=== PATIENT | male | born 2000 | race African-American/Black ===

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

== ENCOUNTER 2022-06-03 15:46 | Emergency (ER) | payer OTHER ==
--- OUTSIDE RECORDS SUMMARY | 2022-06-03 15:52 | XMS REPORT | Continuity of Care Document ---
:[address] [facility] t Address [address] [place] [address] Care Team Providers Name Role Phone JUAN DANIELS Attending Clinician Unavailable ANTONI GONZALEZ Attending Clinician Unavailable Juan Daniels MD Attending Clinician Doctor Unassigned, [place] Attending Clinician Unavailable 2, [facility] Attending Clinician Unavailable Payers Payer Name Policy Type Policy Number Effective Date Expiration Date Collin LIVES [id number] 2020 HEALTH 00:00:00 Problems This patient has no known problems. Allergies, Adverse Reactions, Alerts Allergy Allergy Status Severity Reaction(s) Onset Inactive Treating Comm ents Source Name Type Date Date Clinician NO KNOWN Drug Active Univers ALLERGIE Class ity of [facility] Social History Social Habit Start Date Stop Date Quantity Comments Source History [facility] University o f Alcohol Std [place] [facility] Drinks Branch History [facility] University o f Alcohol Binge [place] [facility] Sex Assigned At [facility]it y of [facility] Exposure to Not sure University of SARS-CoV-2 [facility] (event) Branch Tobacco use and 2020-04-03 2020-04-03 Never used Universit y of exposure 00:00:00 00:00:00 [facility] Branch Alcohol intake 2020-04-03 2020-04-03 Lifetime University of 00:00:00 00:00:00 non-drinker [place] [facility] (finding) Branch History SDOH 2020-04-03 2020-04-03 1 University o f Alcohol Frequency 00:00:00 00:00:00 [facility] edical Branch Smoking Status Start Date Stop Date Source Never smoker [facility] Medications Ordered Filled Start Stop Current Ordering Indication Dosage Frequency Signature Comments Components Source Medication Medication Date Date Medication? Clinician (SIG) Name Name semaglutide Yes [id number] .5mg inject 0.5 Univers (OZEMPIC) 1-04 mg under ity of 0.25 mg or 00:00: the skin Mil as 0.5 mg(2 00 weekly. Medical mg/1.5 mL) Branch PnIj metFORMIN Yes [id number] 1000mg Take 2 Univers 500 mg 24 1-04 tablets by ity of hr tablet 00:00: mouth 2 (two) Medical times Branch daily with meals. semaglutide Yes [id number] .5mg inject 0.5 Univers (OZEMPIC) 1-04 mg under ity of 0.25 mg or 00:00: the skin Mil as 0.5 mg(2 00 weekly. Medical mg/1.5 mL) Branch PnIj metFORMIN Yes [id number] 1000mg Take 2 Univers 500 mg 24 1-04 tablets by ity of hr tablet 00:00: mouth (two) Medical times Branch daily with meals. semaglutide Yes [id number] .5mg inject 0.5 Univers (OZEMPIC) 1-04 mg under ity of 0.25 mg or 00:00: the skin Mil as 0.5 mg(2 00 weekly. Medical mg/1.5 mL) Branch PnIj metFORMIN 0 Yes [id number] 1000mg Take 2 Univers 500 mg 24 1-04 tablets by ity of hr tablet 00:00: mouth 2 (two) Medical times Branch daily with meals. semaglutide 0 Yes [id number] .5mg inject 0.5 Univers (OZEMPIC) 1-04 mg under ity of 0.25 mg or 00:00: the skin Mil as 0.5 mg(2 00 weekly. Medical mg/1.5 mL) Branch PnIj metFORMIN 0 Yes [id number] 1000mg Take 2 Univers 500 mg 24 1-04 tablets by ity of hr tablet 00:00: mouth 2 00 (two) Medical times Branch daily with meals. semaglutide 2020- Yes [id number] .5mg inject 0.5 Univers (OZEMPIC) 1-04 mg under ity of 0.25 mg or 00:00: the skin Mil as 0.5 mg(2 00 weekly. Medical mg/1.5 mL) Branch PnIj metFORMIN 0 Yes [id number] 1000mg Take 2 Univers 500 mg 24 1-04 tablets by ity of hr tablet 00:00: mouth 2 (two) Medical times Branch daily with meals. semaglutide 0 Yes [id number] .5mg inject 0.5 Univers (OZEMPIC) 1-04 mg under ity of 0.25 mg or 00:00: the skin Mil as 0.5 mg(2 00 weekly. Medical mg/1.5 mL) Branch PnIj metFORMIN 0 Yes [id number] 1000mg Take 2 Univers 500 mg 24 1-04 tablets by ity of hr tablet 00:00: mouth (two) Medical times Branch daily with meals. semaglutide Yes [id number] .5mg inject 0.5 Univers (OZEMPIC) 1-04 mg under ity of 0.25 mg or 00:00: the skin Mil as 0.5 mg(2 00 weekly. Medical mg/1.5 mL) Branch PnIj metFORMIN 0 Yes [id number] 1000mg Take 2 Univers 500 mg 24 1-04 tablets by ity of hr tablet 00:00: mouth 2 (two) Medical times Branch daily with meals. semaglutide Yes [id number] .5mg inject 0.5 Univers (OZEMPIC) 1-04 mg under ity of 0.25 mg or 00:00: the skin Mil as 0.5 mg(2 00 weekly. Medical mg/1.5 mL) Branch PnIj metFORMIN Yes [id number] 1000mg Take 2 Univers 500 mg 24 1-04 tablets by ity of hr tablet 00:00: mouth (two) Medical times Branch daily with meals. TRADJENTA 5 2019-03- No 1{tbl} Take 1 U nivers mg tablet 04-03 tablet by ity of 00:00: 00:00 mouth [place] 00 :00 daily. Medical Branch TRADJENTA 5 2019-03- No 1{tbl} Take 1 U nivers mg tablet - tablet by ity of 00:00: 00:00 mouth [place] 00 :00 daily. Medical Branch cetirizine 2020- Yes 10mg Take 10 mg U nivers 10 mg 2-12 by mouth ity of tablet 00:00: daily. [place] [facility] montelukast 2019- Yes TAKE 1 Univ ers 10 mg 2-12 TABLET BY ity of tablet 00:00: MOUTH [place] EVERY DAY Medical AT NIGHT Branch cetirizine 2019- Yes 10mg Take 10 mg U nivers 10 mg 2-12 by mouth ity of tablet 00:00: daily. [place] [facility] montelukast 2019- Yes TAKE 1 Univ ers 10 mg 2-12 TABLET BY ity of tablet 00:00: MOUTH [place] EVERY DAY Medical AT NIGHT Branch cetirizine 2019- Yes 10mg Take 10 mg U nivers 10 mg 2-12 by mouth ity of tablet 00:00: daily. [place] [facility] montelukast 2019- Yes TAKE 1 Univ ers 10 mg 2-12 TABLET BY ity of tablet 00:00: MOUTH [place] EVERY DAY Medical AT NIGHT Branch cetirizine 2019- Yes 10mg Take 10 mg U nivers 10 mg 2-12 by mouth ity of tablet 00:00: daily. [place] [facility] montelukast 2019- Yes TAKE 1 Univ ers 10 mg 2-12 TABLET BY ity of tablet 00:00: MOUTH [place] [address] EVERY DAY Medical AT NIGHT Branch cetirizine 2019- Yes 10mg Take 10 mg U nivers 10 mg 2-12 by mouth ity of tablet 00:00: daily. [place] [facility] montelukast 2019- Yes TAKE 1 Univ ers 10 mg 2-12 TABLET BY ity of tablet 00:00: MOUTH [place] EVERY DAY Medical AT NIGHT Branch cetirizine 2019- Yes 10mg Take 10 mg U nivers 10 mg 2-12 by mouth ity of tablet 00:00: daily. [place] [facility] montelukast 2019- Yes TAKE 1 Univ ers 10 mg 2-12 TABLET BY ity of tablet 00:00: MOUTH [place] [address] EVERY DAY Medical AT NIGHT Branch cetirizine 2019- Yes 10mg Take 10 mg U nivers 10 mg 2-12 by mouth ity of tablet 00:00: daily. [place] [facility] montelukast 2019- Yes TAKE 1 Univ ers 10 mg 2-12 TABLET BY ity of tablet 00:00: MOUTH [place] 00 EVERY DAY Medical AT NIGHT Branch cetirizine 2019-03 Yes 10mg Take 10 mg U nivers 10 mg 2-12 by mouth ity of tablet 00:00: daily. Medical Branch montelukast 2019-03 Yes TAKE 1 Univ ers 10 mg 2-12 TABLET BY ity of tablet 00:00: MOUTH 00 EVERY DAY Medical AT NIGHT Branch metFORMIN 2019-03- No 1000mg Take 1,000 Univers 1,000 mg 24 2- 01-04 mg by ity of hr tablet 00:00: 00:00 [place] (two) Medical times Branch daily. metFORMIN 2019-03- No 1000mg Take 1,000 Univers 1,000 mg 24 2- 01-04 mg by ity of hr tablet 00:00: 00:00 [place] 00 :[place] (two) Medical times Branch daily. metFORMIN 2019-03- No TAKE 1 Unive rs 500 mg 04-22 TABLET BY ity of tablet 00:00: 00:00 MOUTH [place] 00 :00 EVERY Medical EVENING Branch WITH DINNER metFORMIN 2019-03- No TAKE 1 Unive rs 500 mg 04-22- TABLET BY ity of tablet 00:00: 00:00 MOUTH [place] 00 :00 EVERY Medical EVENING Branch WITH DINNER LANTUS 2019-03 Yes INJECT Univers SOLOSTAR 0-27 UNDER THE ity of U-100 00:00: SKIN 20 [place] INSULIN 100 00 UNITS IN Medi yane unit/mL (3 MORNING Branch mL) AND 30 injection UNITS IN EVENING LANTUS 2019-03 Yes INJECT Univers SOLOSTAR 0-27 UNDER THE ity of U-100 00:00: SKIN 20 [place] INSULIN 100 00 UNITS IN Medi yane unit/mL (3 MORNING Branch mL) AND 30 injection UNITS IN EVENING LANTUS 2019-03 Yes INJECT Univers SOLOSTAR 0-27 UNDER THE ity of U-100 00:00: SKIN 20 [place] INSULIN 100 00 UNITS IN Medi yane unit/mL (3 MORNING Branch mL) AND 30 injection UNITS IN EVENING LANTUS 2019-03 Yes INJECT Univers SOLOSTAR 0-27 UNDER THE ity of U-100 00:00: SKIN 20 [place] INSULIN 100 00 UNITS IN Medi yane unit/mL (3 MORNING Branch mL) AND 30 injection UNITS IN EVENING LANTUS 2019-03 Yes INJECT Univers SOLOSTAR 0-27 UNDER THE ity of U-100 00:00: SKIN 20 [place] INSULIN 100 00 UNITS IN Medi yane unit/mL (3 MORNING Branch mL) AND 30 injection UNITS IN EVENING LANTUS 2019-03 Yes INJECT Univers SOLOSTAR 0-27 UNDER THE ity of U-100 00:00: SKIN 20 [place] INSULIN 100 00 UNITS IN Medi yane unit/mL (3 MORNING Branch mL) AND 30 injection UNITS IN EVENING LANTUS 2019-03 Yes INJECT Univers SOLOSTAR 0-27 UNDER THE ity of U-100 00:00: SKIN 20 [place] INSULIN 100 00 UNITS IN Medi yane unit/mL (3 MORNING Branch mL) AND 30 injection UNITS IN EVENING LANTUS 2019-03 Yes INJECT Univers SOLOSTAR 0-27 UNDER THE ity of U-100 00:00: SKIN 20 [place] INSULIN 100 00 UNITS IN Medi yane unit/mL (3 MORNING Branch mL) AND 30 injection UNITS IN EVENING Vital Signs Vital Name Observation Time Observation Value Comments Source Systolic blood 2020-04-03 20:51:00 132 mm[Hg] Univer [facility] Diastolic blood 2020-04-03 20:51:00 79 [facility]Hg[facility] 2020-04-03 20:51:00 65 /min [facility] Respiratory rate 2020-04-03 20:51:00 18 /min [facility] Body height 2020-04-03 20:51:00 188 cm [facility] Body weight 2020-04-03 20:51:00 165.019 kg [facility] BMI 2020-04-03 20:51:00 46.71 kg/m2 [facility] Procedures Procedure Date / Time Performing Clinician Source Performed INSURANCE CORRESPONDENCE 2020-04-24 06:01:00 Doctor Unassigned, [facility] [place] [facility] INSURANCE CORRESPONDENCE 2020-04-05 06:01:00 Doctor Unassigned, [facility] [place] [facility] POCT HEMOGLOBIN A1C TEST 2020-04-03 21:01:00 Juan Daniels [facility] Encounters Start End Encounter Admission Attending Care Care Encounter Source Date/Time Date/Time Type Type Clinicians Facility Department ID 2022-05-21 2022-05-[address] [facility] [id number] Zaid 08:03:34 08:03:34 [id number] F [facility] 2020-06-26 2020-06-26 Outpatient R JEREMIAH [facility] [id number] Univers 12:00:00 12:00:00 JUAN ity [facility] 2020-06-05 2020-06-05 Outpatient R JEREMIAH [facility] [id number] Univers 09:00:00 09:00:00 JUAN ity [facility] 2020-05-08 2020-05-08 Outpatient R LISA [facility] [id number] Univers 09:00:00 09:00:00 ANTONI [facility] 2020-04-24 2020-04-24 [facility] [id number] Univers 00:00:00 00:00:00 Juan MULTISPEC [id number] ity of [id number] [phone] [facility] AND [facility] 220 Branch [facility]ES [facility] 2020-04-24 2020-04-24 Orders Doctor DAYRON [id number] Univers 00:00:00 00:00:00 Only Unassigned, JASMIN [id number] ity of [place] [facility] [id number] Mil as [phone] [facility] 009 Branch 2020-04-10 2020-04-10 [facility] [id number] Univers 00:00:00 00:00:00 Juan Davison [id number] i [id number] [phone] Ia dical [facility] 220 Branch Building 2020-04-05 2020-04-05 Orders Doctor DAYRON [id number] Univers 00:00:00 00:00:00 Only Unassigned, JASMIN [id number] ity of [place] [facility] [id number] Mil as [phone] [facility] [address] [place] 2020-04-04 2020-04-04 Telephone Jeremiah [facility] [id number] Univers 00:00:00 00:00:00 Juan Davison [id number] i [id number] [phone] Ia dical nal [address] [facility] 2020-04-03 2020-04-03 [employer] Developer 2, [facility] [id number] Univers 15:57:58 16:12:58 Visit Juan Daniels [id number] ity of [id number] [phone] Ia dical [facility] [address] [facility] 2020-04-03 2020-04-03 Office Jeremiah [facility] [id number] Univers 14:41:27 15:45:58 Visit Juan Davison [id number] i ty [id number] [phone] [place] dical [place] [address] [facility] 2020-04-03 2020-04-03 Outpatient R JEREMIAH [facility] [id number] Univers 14:30:00 14:30:00 JUAN hang [facility] Results Test Description Test Time Test Comments Results Result Comments Source COMPREHENSIVE METABOLIC PANEL 2022-05-22 08:41:28 Test Item Value Reference Range Interpretation Comme nts GLUCOSE (test code = 2217) 287 MG/DL 70-99 H BUN (test code = 2208) 14 MG/DL 6-20 CREATININE (test code = 0.96 MG/DL 0.80-1.40 2213) eGFR (2020 CKD-EPI) (test 116 ML/MIN/1.73 >60 code = 42450) CALC BUN/CREAT (test code = 15 RATIO 09-25) SODIUM (test code = 2231) 139 MEQ/L 133-146 POTASSIUM (test code = 2228) 4.0 MEQ/L 3.5-5.4 CHLORIDE (test code = 2215) 99 MEQ/L 95-107 CARBON DIOXIDE (test code = 26 MEQ/L 19-31 2205) CALCIUM (test code = 220) 10.0 MG/DL 8.5-10.5 PROTEIN, TOTAL (test code = 7.0 G/DL 6.1-8.3 2228) ALBUMIN (test code = 2201) 4.4 G/DL 3.5-5.2 CALC GLOBULIN (test code = 2.6 G/DL 1.9-3.7 2239) CALC A/G RATIO (test code = 1.7 RATIO 1.0-2.6 2233) BILIRUBIN, TOTAL (test code 0.2 MG/DL See_Comment [Automated message] The = 2206) system which ge nerated this result transmit keiry reference range : <=1.2. The reference range was not used to interpr et this result as sofia l/abnormal. ALKALINE PHOSPHATASE (test 92 U/L 49-148 code = 2204) AST (test code = 2218) 15 U/L 9-50 ALT (test code = 2219) 19 U/L 5-50 LIPID [id number] 08:41:28 Test Item Value Reference Range Interpretation Comments CHOLESTEROL (test 181 MG/DL <200 code = 2210) TRIGLYCERIDES (test 237 MG/DL <150 H code = 2232) HDL CHOLESTEROL (test 42 MG/DL >39 code = 2220) CALC LDL CHOL (test 103 MG/DL <100 H NOTE: C ALCULATED LDL code = 2237) IS BASED ON LUCERO-VICTOR METHOD WHICHINCLUDES ADJUSTABLE TRIGLYCERIDE:VL DL CHOLESTEROL RAT IO.THIS FACTOR VARIES B Y MEASURED TRIGLY CERIDE AND NON-HDLCHOL ESTEROL CONCENTRATIONS WITH INCREASED CALCU LATED LDL SEENIN HIGH ER TRIGLYCERIDE OR LOWER NON-HDL SPECIME NS. FOR MOREINFORMATION , SEE CLIENT ANNOUNCE MENT AT [email or web address] RATIO LDL/HDL 2.45 RATIO <3.55 (test code = 2238) HEMOGLOBIN [id number] 03:17:37 Test Item Value Reference Range Interpretation Comments HEMOGLOBIN A1c (test 12.1 % 4.2-5.6 H [employer]IC AN DIABETES code = 58040) ASSOCIATION IDE[employer] FOR HGB A1C: PREDIABETES/INC REASED RISK . . . . . . . 5 .7-6.4% DIAGNOSIS OF DI ABETES . . . . . . . . . >=6 .5% WITH CONFIRMATION OR APPROPRIATE SYMPTOMS NOTE: ASSAY MAY BE AFFECTED BY HEMOGLOBINOPATH IES (SICKLE CELL ANEMIA, S- C DISEASE, OTHERS) OR EDDIE FICIALLY LOWERED BY DECR EASED RED CELL SURVIVAL ( HEMOLYTIC ANEMIAS, BLOOD LOSS, ETC.). CONSIDER ALTERN ATE TESTING OR LABORATORY C ONSULTATION. [facility] has imp ortant pathology staff changes effective 05/29. New pathology s taff will provide uninter rupted, excellent patie nt care and clinical consul tation. See URL: [email or web address]. UNLESS OTH ERWISE INDICATED, ALL TESTING PERFORMED AT [facility] [employer] [address] [place] [id number] [place] [address] DIRECTOR: JUNE MAYES M.D. [place] NUMBER [id number] CAP ACCREDITATION N O. [id number] POCT HEMOGLOBIN A1C [id number] 21:01:00 Test Item Value Reference Range Interpretation Comments POCT HBA1C (test code = 4548-4) 14 % 4-6 A Lab Interpretation (test code = Abnormal 83157-8) [facility] [id number] 21:01:00 Test Item Value Reference Range Interpretation Comments POCT HBA1C (test code = 4548-4) 14 % 4-6 A Lab Interpretation (test code = Abnormal 72345-8) [facility]
--- NOTE | 2022-06-03 16:42 | RAD REPORT ---
EXAM DESCRIPTION: RAD - Ankle Left 3 View -06/03/2022 4:22 pm CLINICAL HISTORY: Left ankle pain status post injury FINDINGS: Soft tissue swelling Plate and screws affix old fibula/tibia fractures. No acute fracture or dislocation noted
--- NOTE | 2022-06-03 16:59 | EDPHYS ---
Physician Documentation [facility] Name: Morro Davenport Age: 21 yrs Sex: Male : 2000 Arrival Date: 06/03/2022 Time: 15:51 Bed IW6 Private MD: ED Physician Hamlet Aguirre HPI: 06/03 16:31 This 21 yrs old Black Male presents to ER via Wheelchair with complaints of Ankle kb Injury. 16:31 The patient presents with an injury, pain, swelling, tenderness. The complaints affect kb the left ankle. Onset: The symptoms/episode began/occurred 4 day(s) ago. Context: resulted from twist, The patient can fully bear weight on the affected extremity. the patient is able to ambulate. Associated signs and symptoms: Pertinent positives: swelling. Modifying factors: The symptoms are alleviated by nothing, the symptoms are aggravated by weight bearing, movement. Severity of symptoms: At their worst the symptoms were moderate, in the emergency department the symptoms are unchanged. The patient has not experienced similar symptoms in the past. The patient has not recently seen a physician. Historical: - Allergies: 16:18 AVOCADO (LAURUS PERSEA); aa5 - PMHx: 16:18 Intellectual disability; aa5 16:18 Diabetes mellitus; aa5 - PSHx: 16:18 left ankle; aa5 - Immunization history:: Client reports having NOT received the Covid vaccine. - Social history:: Smoking status: Patient denies any tobacco usage or history of. ROS: 16:29 Constitutional: Negative for fever, chills, and weight loss. kb 16:29 MS/extremity: Positive for pain, swelling, tenderness, of the left lateral ankle. 16:29 All other systems are negative. Exam: 16:29 Constitutional: This is a well developed, well nourished patient who is awake, alert, kb and in no acute distress. Head/Face: Normocephalic, atraumatic. ENT: Moist Mucous membranes Cardiovascular: Regular rate and rhythm with a normal S1 and S2. No gallops, murmurs, or rubs. No pulse deficits. Respiratory: Respirations even and unlabored. No increased work of breathing. Talking in full sentences Skin: Warm, dry with normal turgor. Normal color. Neuro: Awake and alert, GCS 15, oriented to person, place, time, and situation. Moves all extremities. Normal gait. 16:29 Musculoskeletal/extremity: Extremities: grossly normal except: noted in the left lateral ankle: pain, swelling, tenderness, ROM: intact in all extremities, Circulation is intact in all extremities. Sensation intact. Weight bearing: able to fully bear weight. Vital Signs: 16:10 BP 154 / 89; Pulse 80; Resp 16 S; Temp 98.3(TE); Pulse Ox 98% on R/A; Weight 145.15 kg aa5 (R); Height 6 ft. 3 in. (190.50 cm) (R); 16:10 Body Mass Index 40.00 (145.15 kg, 190.50 cm) aa5 MDM: 15:51 Patient medically screened. 16:29 Differential diagnosis: fracture, sprain. Data reviewed: vital signs, nurses notes. ED kb course: Patient is a 21-year-old male who presents with left ankle pain after rolling it 4 days ago. On exam patient has mild swelling and tenderness to the left ankle. Patient ambulatory with steady gait. X-ray obtained to rule out fracture.. 16:57 I considered the following discharge prescriptions or medication management in the emergency department I discussed and recommended Over The Counter medications. Counseling: I had a detailed discussion with the patient and/or guardian regarding: the historical points, exam findings, and any diagnostic results supporting the discharge/admit diagnosis, radiology results, the need for outpatient follow up, a orthopedic surgeon, to return to the emergency department if symptoms worsen or persist or if there are any questions or concerns that arise at home. 06/03 15:58 Order name: Ankle Left 3 View XRAY 06/03 16:42 Order name: RAD; Complete Time: 16:57 EDMS Administered Medications: No medications were administered Disposition Summary: 06/03/22 16:58 Discharge Ordered Location: Home Condition: Stable Diagnosis - Sprain of ankle Followup: kb - With: Emergency Department - When: As needed - Reason: Worsening of condition Followup: kb - With: Private Physician - When: 2 - 3 days - Reason: Recheck today's complaints, Continuance of care, Re-evaluation by your physician Discharge Instructions: - Discharge Summary Sheet kb - Ankle Sprain, [id number] Forms: - Medication Reconciliation Form kb - Thank You Letter kb - Antibiotic Education kb - Prescription Opioid Use kb - Work release form eh3 Signatures: Dispatcher [employer] Analia De Los Santos, FLUE BLOWER-C FLUE BLOWER-Oma Weston, RN RN aa5
--- NOTE | 2022-06-03 16:59 | ER ---
Nurse's Notes [facility] Name: Morro Davenport Age: 21 yrs Sex: Male : 2000 Arrival Date: 06/03/2022 Time: 15:51 Bed IW6 Private MD: Diagnosis: Sprain of ankle Presentation: 06/03 16:10 Chief complaint: Patient states: left ankle pain that began Suraj night, reports he aa5 possibly rolled ankle. 16:10 Coronavirus screen: At this time, the client does not indicate any symptoms associated aa5 with coronavirus-19. Ebola Screen: Patient denies travel to an Ebola-affected area in the 21 days before illness onset. Initial Sepsis Screen: Does the patient meet any 2 criteria? No. Patient's initial sepsis screen is negative. Does the patient have a suspected source of infection? No. Patient's initial sepsis screen is negative. Risk Assessment: Do you want to hurt yourself or someone else? Patient reports no desire to harm self or others. Onset of symptoms was May 2022. 16:10 Acuity: ROMINA 4 aa5 16:10 Method Of Arrival: Wheelchair aa5 Historical: - Allergies: 16:18 AVOCADO (LAURUS PERSEA); aa5 - PMHx: 16:18 Intellectual disability; aa5 16:18 Diabetes mellitus; aa5 - PSHx: 16:18 left ankle; aa5 - Immunization history:: Client reports having NOT received the Covid vaccine. - Social history:: Smoking status: Patient denies any tobacco usage or history of. Vital Signs: 16:10 BP 154 / 89; Pulse 80; Resp 16 S; Temp 98.3(TE); Pulse Ox 98% on R/A; Weight 145.15 kg aa5 (R); Height 6 ft. 3 in. (190.50 cm) (R); 16:10 Body Mass Index 40.00 (145.15 kg, 190.50 cm) aa5 ED Course: 15:51 Patient arrived in ED. rg4 15:51 [facility]C [facility] kb 15:51 Hamlet Aguirre DO is Attending Physician. kb 16:10 Arm band placed on. aa5 16:18 Triage completed. aa5 17:06 Patricia Parra, RN is Primary Nurse. iw Administered Medications: No medications were administered Outcome: 16:58 Discharge ordered by . kb 17:11 Patient left the ED. 3 Signatures: Analia Ackerman, ANTHONY-C ANTHONY-Patricia Rivas, RN RN Oma Mahmood RN RN Shelbie Mendoza Erin RN RN 3
[2022-06-03 17:19] VITALS: BP 154/89; TEMP 98.3; O2SAT 98
== END 2022-06-03 17:11 | disposition home or self-care (01) ==
LOC: ER 15:46
DX: S93.402A Sprain of unspecified ligament of left ankle, initial encounter (principal); Z91.018 Allergy to other foods
CPT/HCPCS: 99281